=== PATIENT | male | born 1935 | race Caucasian/White ===

== ENCOUNTER 2017-09-12 20:10 | Inpatient (IN) | payer MEDICARE, OTHER ==
[~2017-09-12] VITALS: Ht 175.3 cm; Wt 88.0 kg
[2017-09-12 20:42] LABS: BASOPHILS % (AUTO) 0.4 % (0-1); EOSINOPHILS # (AUTO) 0.6 X10'3 (0-0.9); EOSINOPHILS % (AUTO) 6.1 % (0-6); HEMATOCRIT 46.8 % (42.0-52.0); LYMPHOCYTES # (AUTO) 3.3 X10'3 (1.1-4.8); LYMPHOCYTES % (AUTO) 34.4 % (21-51); MEAN CORPUSCULAR HEMOGLOBIN 31.4 PG (27.0-31.0); MEAN CORPUSCULAR HGB CONC 34.1 % (33.0-36.5); MEAN CORPUSCULAR VOLUME 91.9 FL (78-98); MEAN PLATELET VOLUME 7.7 FL (7.4-10.4); MONOCYTES # (AUTO) 0.8 X10'3 (0-0.9); MONOCYTES % (AUTO) 8.4 % (2-12); NEUTROPHILS # (AUTO) 4.9 X10'3 (1.8-7.7); NEUTROPHILS % (AUTO) 50.7 % (42-75); PLATELET COUNT 262 X10'3 (140-440); RED CELL DISTRIBUTION WIDTH 14.1 % (11.5-14.5); WHITE BLOOD COUNT 9.7 X10'3 (4.5-11.0)
[2017-09-12 20:53] LABS: PARTIAL THROMBOPLASTIN TIME 30 SECONDS (22-32); PROTHROMBIN TIME 10.6 SECONDS (9.0-12.0)
[2017-09-12] MEDS ORDERED: aspirin 325mg tablet PO ONE (20:55)
[2017-09-12 20:57] LABS: ALANINE AMINOTRANSFERASE 21 U/L (12-78); ALBUMIN 3.8 G/DL (3.4-5.0); ALBUMIN/GLOBULIN RATIO 0.9 (1.1-1.5); ALKALINE PHOSPHATASE 85 IU/L (46-116); ANION GAP 14 (8-16); ASPARTATE AMINO TRANSFERASE 16 U/L (10-37); BILIRUBIN,TOTAL 0.3 MG/DL (0.1-1.0); BLOOD UREA NITROGEN 16 MG/DL (7-18); BUN/CREATININE RATIO 9.7 (5.4-32.0); CALCIUM 9.3 MG/DL (8.5-10.1); CHLORIDE 103 MMOL/L (99-107); CREATININE 1.65 MG/DL (0.60-1.10); GLUCOSE 151 MG/DL (70-104); POTASSIUM 3.9 MMOL/L (3.5-5.1); SODIUM 139 MMOL/L (135-145); TOTAL CARBON DIOXIDE 22.5 MMOL/L (24-32); TOTAL PROTEIN 8.1 G/DL (6.4-8.2); eGFR 40 ML/MIN
[2017-09-12] MEDS ORDERED: AMLO-94 PO (21:11)
[2017-09-12] MEDS ORDERED: ASPI81TA52 PO (21:12)
[2017-09-12] MEDS ORDERED: magnesium hydroxide 30ml (MOM) UD suspension PO PRN (23:20)
[2017-09-12] MEDS ORDERED: ondansetron/PF 4mg/2ml inj IV PRN (23:20)
[2017-09-12] MEDS ORDERED: potassium Cl 20 mEq SR tablet PO PRN ×2 (23:20)
[2017-09-12] MEDS ORDERED: acetaminophen 325mg tablet PO PRN (23:20)
[2017-09-12] MEDS ORDERED: potassium Cl 40MEQ/NS 500ml 500 ML IV PRN ×2 (23:20)
[2017-09-12] MEDS ORDERED: mag hydrox/Alum hydrox/simeth 30ml oral suspension PO PRN (23:20)
[2017-09-12] MEDS: normal saline 1000ml 1,000 ML IV SCH (23:40)
[2017-09-12 23:51] LABS: HEMOGLOBIN A1C 6.3 % (4.5-6.2)
[2017-09-13 06:13] LABS: BASOPHILS % (AUTO) 0.5 % (0-1); EOSINOPHILS # (AUTO) 0.5 X10'3 (0-0.9); EOSINOPHILS % (AUTO) 5.8 % (0-6); HEMATOCRIT 44.6 % (42.0-52.0); HEMOGLOBIN 15.3 g/dl (14.0-17.9); LYMPHOCYTES # (AUTO) 2.5 X10'3 (1.1-4.8); LYMPHOCYTES % (AUTO) 28.4 % (21-51); MEAN CORPUSCULAR HEMOGLOBIN 31.5 PG (27.0-31.0); MEAN CORPUSCULAR HGB CONC 34.2 % (33.0-36.5); MEAN CORPUSCULAR VOLUME 92.1 FL (78-98); MEAN PLATELET VOLUME 7.6 FL (7.4-10.4); MONOCYTES # (AUTO) 0.7 X10'3 (0-0.9); MONOCYTES % (AUTO) 8.5 % (2-12); NEUTROPHILS # (AUTO) 4.9 X10'3 (1.8-7.7); NEUTROPHILS % (AUTO) 56.8 % (42-75); PLATELET COUNT 238 X10'3 (140-440); RED BLOOD COUNT 4.85 X10'6 (4.70-6.10); RED CELL DISTRIBUTION WIDTH 14.1 % (11.5-14.5); WHITE BLOOD COUNT 8.7 X10'3 (4.5-11.0)
[2017-09-13 06:41] LABS: ALBUMIN 3.5 G/DL (3.4-5.0); ANION GAP 13 (8-16); BLOOD UREA NITROGEN 16 MG/DL (7-18); CHLORIDE 106 MMOL/L (99-107); CHOL/HDL RATIO 4.4 (0.00-4.99); CHOLESTEROL 191 MG/DL (0-200); CREATININE 1.45 MG/DL (0.60-1.10); GLUCOSE 116 MG/DL (70-104); HDL CHOLESTEROL 43 MG/DL (35-60); LDL CHOLESTEROL 120 MG/DL (50-100); SODIUM 142 MMOL/L (135-145); TOTAL CARBON DIOXIDE 23.2 MMOL/L (24-32); TRIGLYCERIDES 168 MG/DL (20-135); eGFR 46 ML/MIN
[2017-09-13] MEDS: K and/or MAG REPLACEMENT MC SCH (07:51)
[2017-09-13] MEDS ORDERED: lisinopril 20mg tablet PO SCH (08:00)
[2017-09-13] MEDS ORDERED: atorvastatin 20mg tablet PO SCH (08:00)
[2017-09-13] MEDS ORDERED: amLODIPine 5mg tablet PO SCH (08:00)
[2017-09-13] MEDS ORDERED: aspirin 81mg tablet.DR PO SCH (08:00)
[2017-09-13] MEDS: tamsulosin 0.4mg capsule PO SCH ×2 (08:18→20:55)
[2017-09-13] MEDS: aspirin 81mg tab.chew PO SCH (08:19)
[2017-09-13] MEDS: clopidogrel 75mg tablet PO SCH (08:20)
[2017-09-13] MEDS: normal saline 1000ml 1,000 ML IV SCH (13:37)
[2017-09-13 15:17] VITALS: BP 139/87
[2017-09-13 19:23] VITALS: BP 128/77
[2017-09-13 22:00] VITALS: BP 104/66
[2017-09-14 02:19] VITALS: BP 118/76
[2017-09-14] MEDS: normal saline 1000ml 1,000 ML IV SCH ×2 (03:17→14:07)
[2017-09-14 05:00] VITALS: BP 124/76
[2017-09-14 06:38] LABS: BASOPHILS # (AUTO) 0.1 X10'3 (0-0.2); BASOPHILS % (AUTO) 0.8 % (0-1); EOSINOPHILS # (AUTO) 0.5 X10'3 (0-0.9); EOSINOPHILS % (AUTO) 7.4 % (0-6); HEMATOCRIT 43.4 % (42.0-52.0); HEMOGLOBIN 14.8 g/dl (14.0-17.9); LYMPHOCYTES # (AUTO) 1.9 X10'3 (1.1-4.8); LYMPHOCYTES % (AUTO) 26.7 % (21-51); MEAN CORPUSCULAR HEMOGLOBIN 31.5 PG (27.0-31.0); MEAN CORPUSCULAR HGB CONC 34.1 % (33.0-36.5); MEAN CORPUSCULAR VOLUME 92.5 FL (78-98); MEAN PLATELET VOLUME 7.8 FL (7.4-10.4); MONOCYTES # (AUTO) 0.6 X10'3 (0-0.9); MONOCYTES % (AUTO) 8.6 % (2-12); NEUTROPHILS # (AUTO) 4.1 X10'3 (1.8-7.7); NEUTROPHILS % (AUTO) 56.5 % (42-75); PLATELET COUNT 221 X10'3 (140-440); RED CELL DISTRIBUTION WIDTH 14.2 % (11.5-14.5); WHITE BLOOD COUNT 7.3 X10'3 (4.5-11.0)
[2017-09-14 06:55] LABS: ALBUMIN 3.1 G/DL (3.4-5.0); ANION GAP 10 (8-16); BLOOD UREA NITROGEN 15 MG/DL (7-18); BUN/CREATININE RATIO 10.6 (5.4-32.0); CALCIUM 8.7 MG/DL (8.5-10.1); CHLORIDE 109 MMOL/L (99-107); CREATININE 1.42 MG/DL (0.60-1.10); GLUCOSE 104 MG/DL (70-104); POTASSIUM 4.4 MMOL/L (3.5-5.1); SODIUM 142 MMOL/L (135-145); TOTAL CARBON DIOXIDE 23.3 MMOL/L (24-32); eGFR 47 ML/MIN
[2017-09-14] MEDS: K and/or MAG REPLACEMENT MC SCH (08:00)
[2017-09-14 09:00] VITALS: BP 116/70
[2017-09-14] MEDS: clopidogrel 75mg tablet PO SCH (10:33)
[2017-09-14] MEDS: atorvastatin 20mg tablet PO SCH (10:34)
[2017-09-14] MEDS: aspirin 81mg tab.chew PO SCH (10:34)
[2017-09-14 18:00] VITALS: BP 133/80
[2017-09-14] MEDS: tamsulosin 0.4mg capsule PO SCH (20:49)
[2017-09-14 22:00] VITALS: BP 131/73
[2017-09-15 02:00] VITALS: BP 142/91
[2017-09-15 05:00] VITALS: BP 152/86
[2017-09-15 06:00] LABS: BASOPHILS # (AUTO) 0.1 X10'3 (0-0.2); BASOPHILS % (AUTO) 0.7 % (0-1); EOSINOPHILS # (AUTO) 0.7 X10'3 (0-0.9); EOSINOPHILS % (AUTO) 7.6 % (0-6); HEMOGLOBIN 15.1 g/dl (14.0-17.9); LYMPHOCYTES # (AUTO) 2.5 X10'3 (1.1-4.8); LYMPHOCYTES % (AUTO) 27.2 % (21-51); MEAN CORPUSCULAR HEMOGLOBIN 31.8 PG (27.0-31.0); MEAN CORPUSCULAR HGB CONC 34.2 % (33.0-36.5); MEAN CORPUSCULAR VOLUME 92.8 FL (78-98); MEAN PLATELET VOLUME 7.9 FL (7.4-10.4); MONOCYTES # (AUTO) 0.7 X10'3 (0-0.9); MONOCYTES % (AUTO) 7.4 % (2-12); NEUTROPHILS # (AUTO) 5.3 X10'3 (1.8-7.7); NEUTROPHILS % (AUTO) 57.1 % (42-75); PLATELET COUNT 221 X10'3 (140-440); RED BLOOD COUNT 4.74 X10'6 (4.70-6.10); RED CELL DISTRIBUTION WIDTH 14.2 % (11.5-14.5); WHITE BLOOD COUNT 9.3 X10'3 (4.5-11.0)
[2017-09-15 06:02] LABS: ALBUMIN 3.3 G/DL (3.4-5.0); ANION GAP 11 (8-16); BLOOD UREA NITROGEN 15 MG/DL (7-18); BUN/CREATININE RATIO 10.6 (5.4-32.0); CALCIUM 8.6 MG/DL (8.5-10.1); CHLORIDE 108 MMOL/L (99-107); CREATININE 1.42 MG/DL (0.60-1.10); GLUCOSE 105 MG/DL (70-104); POTASSIUM 3.9 MMOL/L (3.5-5.1); SODIUM 143 MMOL/L (135-145); TOTAL CARBON DIOXIDE 24.3 MMOL/L (24-32); eGFR 47 ML/MIN
[2017-09-15] MEDS: K and/or MAG REPLACEMENT MC SCH (08:47)
[2017-09-15] MEDS: atorvastatin 20mg tablet PO SCH (09:00)
[2017-09-15] MEDS: aspirin 81mg tab.chew PO SCH (09:01)
[2017-09-15] MEDS: clopidogrel 75mg tablet PO SCH (09:01)
[2017-09-15 10:00] VITALS: BP 140/92
[2017-09-15 18:00] VITALS: BP 145/65
[2017-09-15] MEDS: tamsulosin 0.4mg capsule PO SCH (20:54)
[2017-09-15 22:00] VITALS: BP 143/83
[2017-09-15] MEDS: normal saline 1000ml 1,000 ML IV SCH (22:49)
[2017-09-16 06:00] VITALS: BP 110/80
[2017-09-16 06:06] LABS: BASOPHILS % (AUTO) 0.5 % (0-1); EOSINOPHILS # (AUTO) 0.6 X10'3 (0-0.9); EOSINOPHILS % (AUTO) 7.6 % (0-6); HEMATOCRIT 41.3 % (42.0-52.0); HEMOGLOBIN 14.2 g/dl (14.0-17.9); LYMPHOCYTES # (AUTO) 1.8 X10'3 (1.1-4.8); LYMPHOCYTES % (AUTO) 22.3 % (21-51); MEAN CORPUSCULAR HEMOGLOBIN 31.6 PG (27.0-31.0); MEAN CORPUSCULAR HGB CONC 34.4 % (33.0-36.5); MEAN CORPUSCULAR VOLUME 91.9 FL (78-98); MEAN PLATELET VOLUME 7.7 FL (7.4-10.4); MONOCYTES # (AUTO) 0.7 X10'3 (0-0.9); MONOCYTES % (AUTO) 8.6 % (2-12); PLATELET COUNT 204 X10'3 (140-440); RED CELL DISTRIBUTION WIDTH 14.3 % (11.5-14.5); WHITE BLOOD COUNT 8.2 X10'3 (4.5-11.0)
[2017-09-16 06:19] LABS: ALBUMIN 3.1 G/DL (3.4-5.0); ANION GAP 10 (8-16); BLOOD UREA NITROGEN 13 MG/DL (7-18); BUN/CREATININE RATIO 8.7 (5.4-32.0); CALCIUM 8.7 MG/DL (8.5-10.1); CHLORIDE 109 MMOL/L (99-107); CREATININE 1.49 MG/DL (0.60-1.10); GLUCOSE 112 MG/DL (70-104); SODIUM 142 MMOL/L (135-145); TOTAL CARBON DIOXIDE 23.3 MMOL/L (24-32); eGFR 45 ML/MIN
[2017-09-16 07:50] VITALS: BP 136/79
[2017-09-16] MEDS: K and/or MAG REPLACEMENT MC SCH (08:00)
[2017-09-16] MEDS: atorvastatin 20mg tablet PO SCH (08:19)
[2017-09-16] MEDS: aspirin 81mg tab.chew PO SCH (08:20)
[2017-09-16] MEDS: clopidogrel 75mg tablet PO SCH (08:20)
[2017-09-16 11:26] VITALS: BP 152/87
== END 2017-09-16 16:22 | DRG 65 ==
LOC: ER 20:11 → ED HOLD 23:19 → ORTHO 4S 09-13 14:42
PROVIDERS: ADMIT Family Medicine; ATTEND Family Medicine
DX: I63.9 Cerebral infarction, unspecified (principal); G81.91 Hemiplegia, unspecified affecting right dominant side; N18.3 Chronic kidney disease, stage 3 (moderate); E78.00 Pure hypercholesterolemia, unspecified; E78.5 Hyperlipidemia, unspecified; I12.9 Hypertensive chronic kidney disease with stage 1 through stage 4 chronic kidney disease, or unspecified chronic kidney disease; R73.03 Prediabetes; R47.1 Dysarthria and anarthria; Z66 Do not resuscitate; Z88.5 Allergy status to narcotic agent; Z79.899 Other long term (current) drug therapy; Z79.82 Long term (current) use of aspirin; Z86.73 Personal history of transient ischemic attack (TIA), and cerebral infarction without residual deficits; Z82.49 Family history of ischemic heart disease and other diseases of the circulatory system
CPT/HCPCS: 36415; 70450; 70544; 70551; 71045; 80048; 80053; 80061; 82948; 83036; 85025; 85610; 85730; 87070; 92616; 93005; 93306; 93880; 97110; 97116; 97161; 97530; 99285; J7030

== ENCOUNTER 2017-09-22 17:05 | Inpatient (IN) | payer MEDICARE, BC ==
[~2017-09-22] VITALS: Ht 172.7 cm; Wt 81.0 kg
[~2017-09-22 17:05] MED LIST: AMLO-94 PO; ASPI81TA52 PO
[2017-09-22 18:13] LABS: PARTIAL THROMBOPLASTIN TIME 30 SECONDS (22-32); PROTHROMBIN TIME 10.5 SECONDS (9.0-12.0)
[2017-09-22 18:15] LABS: BASOPHILS % (AUTO) 0.5 % (0-1); EOSINOPHILS # (AUTO) 0.5 X10'3 (0-0.9); HEMATOCRIT 43.6 % (42.0-52.0); HEMOGLOBIN 14.9 g/dl (14.0-17.9); LYMPHOCYTES # (AUTO) 1.9 X10'3 (1.1-4.8); LYMPHOCYTES % (AUTO) 24.5 % (21-51); MEAN CORPUSCULAR HEMOGLOBIN 31.6 PG (27.0-31.0); MEAN CORPUSCULAR HGB CONC 34.1 % (33.0-36.5); MEAN CORPUSCULAR VOLUME 92.8 FL (78-98); MEAN PLATELET VOLUME 7.9 FL (7.4-10.4); MONOCYTES # (AUTO) 0.6 X10'3 (0-0.9); MONOCYTES % (AUTO) 7.9 % (2-12); NEUTROPHILS # (AUTO) 4.6 X10'3 (1.8-7.7); NEUTROPHILS % (AUTO) 60.1 % (42-75); PLATELET COUNT 256 X10'3 (140-440); RED CELL DISTRIBUTION WIDTH 13.9 % (11.5-14.5); WHITE BLOOD COUNT 7.7 X10'3 (4.5-11.0)
[2017-09-22 18:20] LABS: ALANINE AMINOTRANSFERASE 24 U/L (12-78); ALBUMIN 3.5 G/DL (3.4-5.0); ALBUMIN/GLOBULIN RATIO 0.9 (1.1-1.5); ALKALINE PHOSPHATASE 89 IU/L (46-116); ANION GAP 10 (8-16); ASPARTATE AMINO TRANSFERASE 16 U/L (10-37); BILIRUBIN,TOTAL 0.3 MG/DL (0.1-1.0); BLOOD UREA NITROGEN 19 MG/DL (7-18); BUN/CREATININE RATIO 12.7 (5.4-32.0); CHLORIDE 103 MMOL/L (99-107); GLUCOSE 160 MG/DL (70-104); POTASSIUM 3.8 MMOL/L (3.5-5.1); SODIUM 141 MMOL/L (135-145); TOTAL CARBON DIOXIDE 27.7 MMOL/L (24-32); TOTAL PROTEIN 7.4 G/DL (6.4-8.2); eGFR 45 ML/MIN
[2017-09-22] MEDS ORDERED: pantoprazole 40 MG vial IV ONE (21:05)
[2017-09-22] MEDS ORDERED: pantoprazole 40MG/NS 100ML BAG 100 ML IV ONE (21:05)
[2017-09-22] MEDS ORDERED: mag hydrox/Alum hydrox/simeth 30ml oral suspension PO PRN (22:10)
[2017-09-22] MEDS ORDERED: magnesium hydroxide 30ml (MOM) UD suspension PO PRN (22:10)
[2017-09-22] MEDS ORDERED: ondansetron/PF 4mg/2ml inj IV PRN (22:10)
[2017-09-22] MEDS ORDERED: acetaminophen 325mg tablet PO PRN ×2 (22:10)
[2017-09-22] MEDS: normal saline 1000ml 1,000 ML IV SCH (22:25)
[2017-09-23] VITALS (11 sets, daily range): BP systolic 108–151; BP diastolic 56–89
[2017-09-23] MEDS: atorvastatin 20mg tablet PO SCH ×2 (00:37→08:52)
[2017-09-23 05:20] LABS: BASOPHILS # (AUTO) 0.1 X10'3 (0-0.2); EOSINOPHILS # (AUTO) 0.7 X10'3 (0-0.9); EOSINOPHILS % (AUTO) 7.8 % (0-6); HEMATOCRIT 38.9 % (42.0-52.0); HEMOGLOBIN 13.6 g/dl (14.0-17.9); LYMPHOCYTES # (AUTO) 1.9 X10'3 (1.1-4.8); LYMPHOCYTES % (AUTO) 22.9 % (21-51); MEAN CORPUSCULAR HEMOGLOBIN 31.8 PG (27.0-31.0); MEAN CORPUSCULAR HGB CONC 34.8 % (33.0-36.5); MEAN CORPUSCULAR VOLUME 91.4 FL (78-98); MEAN PLATELET VOLUME 7.7 FL (7.4-10.4); MONOCYTES # (AUTO) 0.8 X10'3 (0-0.9); MONOCYTES % (AUTO) 9.9 % (2-12); NEUTROPHILS % (AUTO) 58.4 % (42-75); PLATELET COUNT 224 X10'3 (140-440); RED BLOOD COUNT 4.26 X10'6 (4.70-6.10); RED CELL DISTRIBUTION WIDTH 13.6 % (11.5-14.5); WHITE BLOOD COUNT 8.5 X10'3 (4.5-11.0)
[2017-09-23 05:47] LABS: ALBUMIN 3.1 G/DL (3.4-5.0); ANION GAP 8 (8-16); BLOOD UREA NITROGEN 17 MG/DL (7-18); BUN/CREATININE RATIO 12.1 (5.4-32.0); CALCIUM 8.5 MG/DL (8.5-10.1); CHLORIDE 107 MMOL/L (99-107); GLUCOSE 108 MG/DL (70-104); POTASSIUM 3.9 MMOL/L (3.5-5.1); SODIUM 141 MMOL/L (135-145); TOTAL CARBON DIOXIDE 25.8 MMOL/L (24-32); eGFR 48 ML/MIN
[2017-09-23] MEDS: lisinopril 20mg tablet PO SCH (08:52)
[2017-09-23] MEDS: amLODIPine 5mg tablet PO SCH (08:52)
[2017-09-23] MEDS: normal saline 1000ml 1,000 ML IV SCH (13:31)
[2017-09-23] MEDS ORDERED: LIDOcaine Viscous 15ml cup ONE (16:22)
[2017-09-23] MEDS ORDERED: fentaNYL/PF 50MCG/1 ML 2ML syringe ONE (16:22)
[2017-09-23] MEDS ORDERED: MIDAZolam 5mg/5ml vial ONE (16:22)
[2017-09-23] MEDS ORDERED: normal saline 1000ml 1,000 ML IV SCH (16:30)
[2017-09-23] MEDS ORDERED: fentaNYL/PF 50MCG/1 ML 2ML syringe IV PRN (16:30)
[2017-09-23] MEDS ORDERED: LIDOcaine Viscous 15ml cup PO ONE (16:30)
[2017-09-23] MEDS ORDERED: simethicone 40mg/0.6ml oral drops 30ml MC ONE (16:30)
[2017-09-23] MEDS ORDERED: MIDAZolam 5mg/5ml vial IV PRN (16:30)
[2017-09-23] MEDS ORDERED: tamsulosin 0.4mg capsule PO SCH (21:00)
[2017-09-24] VITALS: BP 128/72
[2017-09-24 05:23] LABS: BASOPHILS # (AUTO) 0.1 X10'3 (0-0.2); BASOPHILS % (AUTO) 0.7 % (0-1); EOSINOPHILS # (AUTO) 0.6 X10'3 (0-0.9); EOSINOPHILS % (AUTO) 6.4 % (0-6); HEMATOCRIT 41.2 % (42.0-52.0); LYMPHOCYTES # (AUTO) 2.1 X10'3 (1.1-4.8); MEAN CORPUSCULAR HEMOGLOBIN 31.2 PG (27.0-31.0); MEAN CORPUSCULAR VOLUME 91.9 FL (78-98); MEAN PLATELET VOLUME 7.9 FL (7.4-10.4); MONOCYTES # (AUTO) 0.7 X10'3 (0-0.9); MONOCYTES % (AUTO) 8.2 % (2-12); NEUTROPHILS # (AUTO) 5.6 X10'3 (1.8-7.7); NEUTROPHILS % (AUTO) 61.7 % (42-75); PLATELET COUNT 227 X10'3 (140-440); RED BLOOD COUNT 4.48 X10'6 (4.70-6.10); RED CELL DISTRIBUTION WIDTH 13.8 % (11.5-14.5); WHITE BLOOD COUNT 9.1 X10'3 (4.5-11.0)
[2017-09-24] MEDS: normal saline 1000ml 1,000 ML IV SCH (05:43)
[2017-09-24 05:53] LABS: ALBUMIN 3.1 G/DL (3.4-5.0); ANION GAP 10 (8-16); BLOOD UREA NITROGEN 14 MG/DL (7-18); BUN/CREATININE RATIO 9.9 (5.4-32.0); CALCIUM 8.6 MG/DL (8.5-10.1); CHLORIDE 106 MMOL/L (99-107); CREATININE 1.41 MG/DL (0.60-1.10); GLUCOSE 101 MG/DL (70-104); POTASSIUM 3.7 MMOL/L (3.5-5.1); SODIUM 141 MMOL/L (135-145); TOTAL CARBON DIOXIDE 24.7 MMOL/L (24-32); eGFR 48 ML/MIN
[2017-09-24 08:43] VITALS: BP 123/66
[2017-09-24] MEDS: amLODIPine 5mg tablet PO SCH (09:22)
[2017-09-24] MEDS: lisinopril 20mg tablet PO SCH (09:22)
[2017-09-24] MEDS: atorvastatin 20mg tablet PO SCH (09:23)
[2017-09-24] MEDS ORDERED: CLOP75TA15 PO (10:34)
[2017-09-24] MEDS ORDERED: PANT40TA4 PO (10:34)
[2017-09-24 12:46] VITALS: BP 127/75
[2017-09-24] MEDS ORDERED: BENA20TA2 PO (14:37)
[2017-09-24] MEDS ORDERED: AMLO5TAB16 PO (14:37)
[2017-09-24] MEDS ORDERED: HCTZ25T PO (14:37)
[2017-09-24] MEDS ORDERED: LISI-600 PO (14:42)
[2017-09-24] MEDS ORDERED: ATOR20TA66 PO (15:29)
== END 2017-09-24 15:14 | disposition home or self-care (01) | DRG 379 ==
LOC: ER 17:05 → ED HOLD 22:10 → EDBEDREQ 23:35 → SUR 3N 09-23 00:05
PROVIDERS: ADMIT Internal Medicine; ATTEND Internal Medicine
PROC: 0DB68ZX Excision of Stomach, Via Natural or Artificial Opening Endoscopic, Diagnostic (ICD-10-PCS; principal; 2017-09-23)
DX: K29.71 Gastritis, unspecified, with bleeding (principal); I35.0 Nonrheumatic aortic (valve) stenosis; N18.3 Chronic kidney disease, stage 3 (moderate); E78.00 Pure hypercholesterolemia, unspecified; K26.4 Chronic or unspecified duodenal ulcer with hemorrhage; E78.5 Hyperlipidemia, unspecified; I12.9 Hypertensive chronic kidney disease with stage 1 through stage 4 chronic kidney disease, or unspecified chronic kidney disease; N40.0 Benign prostatic hyperplasia without lower urinary tract symptoms; T39.015A Adverse effect of aspirin, initial encounter; T45.525A Adverse effect of antithrombotic drugs, initial encounter; Z66 Do not resuscitate; Z88.5 Allergy status to narcotic agent; Z79.02 Long term (current) use of antithrombotics/antiplatelets; Z86.73 Personal history of transient ischemic attack (TIA), and cerebral infarction without residual deficits; Y92.89 Other specified places as the place of occurrence of the external cause
CPT/HCPCS: 36415; 43239; 80048; 80053; 85025; 85610; 85730; 87070; 88305; 96365; 99285; A4620; C9113; G0500; J2250; J3010; J7030

== ENCOUNTER 2020-05-28 10:15 | Outpatient (CLI) | payer MEDICARE, BC ==
[~2020-05-28 10:15] MED LIST changes: -AMLO-94 PO; +APIX5TAB3 PO; -ASPI81TA52 PO; +ATOR-2 PO; +CLOP75TA35 PO; +FLO0.4C PO; +FURO-150 PO; +METO-395 PO; +PANT-47 PO
== END 2020-05-28 23:59 | disposition home or self-care (01) ==
LOC: RT 10:15
PROVIDERS: ATTEND Internal Medicine Cardiovascular Disease
DX: I35.0 Nonrheumatic aortic (valve) stenosis (principal); D64.9 Anemia, unspecified; R06.02 Shortness of breath; I65.29 Occlusion and stenosis of unspecified carotid artery
CPT/HCPCS: 94010; 94727; 94729

== ENCOUNTER → 2020-05-30 | Outpatient (CLI) | payer MEDICARE, BC ==
[~2020-05-30] MED LIST changes: +AMLO5TAB4 PO; +ASPI-1265 PO; +ATOR80TA PO; +BENA10TA75 PO; +CLOP75TA34 PO; -CLOP75TA35 PO; +METO-539 PO; +iohexol 350 MG/ML 50ML vial IV ONE; +iohexol 350MG/ML 100ml bottle IV ONE; +metoprolol tartrate 1mg/ml inj IV ONE
--- NOTE | 2020-05-30 12:00 | NUR ---
PATIENT IN CT FOR CARDIAC CTA 18GAUGE RIGHT AC, STRIP PRINTED SHOWS NO AV BLOCKS VS PRIOR TO CT HR 105, B/P 132/76, RR-18 O2-98 RA, PATIENT PLACED ON MONITOR 2.5MG OF METOPROLOL GIVEN VSS HR DECREASED TO 80'S-90'S AFTER 10MIN'S WITH BP ABOVE 100SBP. SECOND DOES OF METOPROLOL 2.5MG GIVEN HR DECREASED TO 70'S RECYCLING ASSISTANT PREFORMED SCAN AND PATIENT WAS MONITORED FOR 10MIN S/P LAST INJECTION WITH VSS BACK TO BASELINE IV REMOVED AND PATIENT TAKEN TO ULTRASOUND FOR VASCULAR US PROCEDURE.
== END | disposition home or self-care (01) ==
LOC: 64 CT 10:34
PROVIDERS: ATTEND Internal Medicine Cardiovascular Disease
DX: I65.23 Occlusion and stenosis of bilateral carotid arteries (principal); I35.0 Nonrheumatic aortic (valve) stenosis; R06.02 Shortness of breath
CPT/HCPCS: 71275; 74174; 93880; Q9967; J3490

== ENCOUNTER 2020-06-20 06:09 | Day surgery (SDC) | payer MEDICARE, BC ==
[2020-06-19 12:25] LABS: BASOPHILS # (AUTO) 0.1 X10'3 (0-0.2); BASOPHILS % (AUTO) 0.7 % (0-1); EOSINOPHILS # (AUTO) 0.5 X10'3 (0-0.9); EOSINOPHILS % (AUTO) 5.9 % (0-6); HEMATOCRIT 35.5 % (42.0-52.0); HEMOGLOBIN 11.4 g/dl (14.0-17.9); LYMPHOCYTES # (AUTO) 1.4 X10'3 (1.1-4.8); LYMPHOCYTES % (AUTO) 16.6 % (21-51); MEAN CORPUSCULAR HGB CONC 32.2 g/dL (33.0-36.5); MEAN CORPUSCULAR VOLUME 77.7 FL (78-98); MEAN PLATELET VOLUME 7.4 FL (7.4-10.4); MONOCYTES # (AUTO) 0.7 X10'3 (0-0.9); MONOCYTES % (AUTO) 8.6 % (2-12); NEUTROPHILS # (AUTO) 5.8 X10'3 (1.8-7.7); NEUTROPHILS % (AUTO) 68.2 % (42-75); PLATELET COUNT 304 X10'3 (140-440); RED BLOOD COUNT 4.57 X10'6 (4.70-6.10); RED CELL DISTRIBUTION WIDTH 17.4 % (11.5-14.5); WHITE BLOOD COUNT 8.5 X10'3 (4.5-11.0)
[2020-06-19 12:36] LABS: ALBUMIN 3.6 G/DL (3.4-5.0); ANION GAP 10 (8-16); BLOOD UREA NITROGEN 22 MG/DL (7-18); BUN/CREATININE RATIO 13.8 (5.4-32.0); CALCIUM 9.1 MG/DL (8.5-10.1); CHLORIDE 105 MMOL/L (99-107); GLUCOSE 142 MG/DL (70-104); PARTIAL THROMBOPLASTIN TIME 27 SECONDS (22-32); POTASSIUM 4.1 MMOL/L (3.5-5.1); SODIUM 142 MMOL/L (135-145); TOTAL CARBON DIOXIDE 27.2 MMOL/L (24-32); eGFR 41 ML/MIN
[~2020-06-20] VITALS: Ht 167.6 cm; Wt 76.7 kg
[2020-06-20] VITALS (16 sets, daily range): BP systolic 97–134; BP diastolic 57–92
[~2020-06-20 06:09] MED LIST changes: -AMLO5TAB4 PO; -ASPI-1265 PO; -ATOR80TA PO; -BENA10TA75 PO; -METO-539 PO; -iohexol 350 MG/ML 50ML vial IV ONE; -iohexol 350MG/ML 100ml bottle IV ONE; -metoprolol tartrate 1mg/ml inj IV ONE
[2020-06-20] MEDS ORDERED: acetylcysteine 200 MG/ml 4ml vial PO SCH (06:30)
[2020-06-20] MEDS ORDERED: sodium bicarbonate (8.4%) inj. 150 ML in dextrose 5%-water 1,000 ML IV ONE ×2 (06:30→10:15)
[2020-06-20] MEDS ORDERED: diphenhydrAMINE 25mg capsule PO PRN (06:30)
[2020-06-20] MEDS ORDERED: LORazepam 0.5 MG tablet PO PRN (06:30)
[2020-06-20] MEDS ORDERED: LIDOcaine/PRILOcaine 5gm cream TP ONE (06:35)
--- NOTE | 2020-06-20 07:30 | NUR ---
pt voided 50ml, clear yellow
[2020-06-20] MEDS ORDERED: midazolam 2 mg/2 ml injection ONE (07:39)
[2020-06-20] MEDS ORDERED: heparin 25,000 UNIT/250ml bag 250 ML IV ONE (07:40)
[2020-06-20] MEDS ORDERED: heparin 1,000unit/ml 10ml vial 10 ML ONE (07:40)
[2020-06-20] MEDS ORDERED: nitroGLYCERIN-Tridil 50MG/D5W 250 ML IV ONE (07:40)
[2020-06-20] MEDS ORDERED: LIDOcaine 1% (10mg/ml)w/preservative injection 20ml MDV ONE (07:40)
[2020-06-20] MEDS ORDERED: iohexol 350 MG/1 ML 200ml bottle ONE (07:40)
[2020-06-20] MEDS ORDERED: fentaNYL/PF 50MCG/1 ML 2ML syringe ONE (07:40)
--- NOTE | 2020-06-20 07:50 | NUR ---
pt voided 50ml clear yellow.
[2020-06-20] MEDS ORDERED: FURO-150 PO (07:52)
[2020-06-20] MEDS ORDERED: APIX5TAB3 PO (07:52)
[2020-06-20] MEDS ORDERED: METO-539 PO (07:52)
[2020-06-20] MEDS ORDERED: ASPI-1265 PO (07:52)
[2020-06-20] MEDS ORDERED: ATOR80TA PO (07:52)
[2020-06-20] MEDS ORDERED: FLU VACC QS2020-21(6MOS UP)/PF 60 MCG/0.5 ML SYRINGE IMVAC ONE (08:00)
[2020-06-20] MEDS ORDERED: clopidogrel 300mg tablet ONE (09:24)
[2020-06-20] MEDS ORDERED: clopidogrel 300mg tablet PO ONE (10:15)
[2020-06-20] MEDS ORDERED: acetylcysteine 200 MG/ml 4ml vial PO ONE (10:20)
--- NOTE | 2020-06-20 10:30 | NUR ---
pt voided 50 ml clear yellow
--- NOTE | 2020-06-20 10:50 | NUR ---
pt voided 50ml clear yellow
--- NOTE | 2020-06-20 11:10 | NUR ---
pt voided 50ml clear yellow
[2020-06-20] MEDS ORDERED: AMLO5TAB4 PO (14:00)
[2020-06-20] MEDS ORDERED: BENA10TA75 PO (14:00)
[2020-06-20 14:23] LABS: CLARITY,URINE CLEAR (Clear); COLOR,URINE YELLOW (Yellow); GLUCOSE, URINE NEGATIVE (Neg); KETONES,URINE NEGATIVE (Neg); LEUKOCYTE ESTERASE ,URINE NEGATIVE (Neg); NITRITES, URINE NEGATIVE (Neg); OCCULT BLOOD,URINE NEGATIVE (Neg); PH,URINE 6.5 (4.8-8.0); PROTEIN,URINE NEGATIVE (Neg); UA COLLECTION TYPE CLN CATCH MIDSTREAM; UROBILINOGEN,URINE 0.2 E.U/dL (0.2-1.0)
[2020-06-21] MEDS ORDERED: clopidogrel 75mg tablet PO SCH (08:00)
== END 2020-06-20 17:00 | disposition home or self-care (01) ==
LOC: SSTAY O 06:09
PROVIDERS: ATTEND Internal Medicine Cardiovascular Disease
DX: I25.10 Atherosclerotic heart disease of native coronary artery without angina pectoris (principal); I25.2 Old myocardial infarction; I35.0 Nonrheumatic aortic (valve) stenosis; I10 Essential (primary) hypertension; E78.5 Hyperlipidemia, unspecified; I08.1 Rheumatic disorders of both mitral and tricuspid valves; N40.0 Benign prostatic hyperplasia without lower urinary tract symptoms; I48.0 Paroxysmal atrial fibrillation; Z86.73 Personal history of transient ischemic attack (TIA), and cerebral infarction without residual deficits; Z88.5 Allergy status to narcotic agent; Z20.822 Contact with and (suspected) exposure to COVID-19; Z79.01 Long term (current) use of anticoagulants; Z82.49 Family history of ischemic heart disease and other diseases of the circulatory system; Z80.9 Family history of malignant neoplasm, unspecified
CPT/HCPCS: 36415; 71045; 76937; 80048; 81003; 85025; 85347; 85610; 85730; 87081; 87635; 93005; 99152; 99153; C1725; C1751; C1769; C1874; C1892; C1894; C9600; J1644; J2001; J2250; J3010; J7040; Q0163; Q9967; A4620; A6258; J3490

== ENCOUNTER 2020-06-28 05:32 | Inpatient (IN) | payer MEDICARE, BC ==
[~2020-06-28] VITALS: Ht 167.6 cm; Wt 76.9 kg
[2020-06-28] VITALS (20 sets, daily range): BP systolic 0–160; BP diastolic 58–89
[~2020-06-28 05:32] MED LIST changes: +AMLO5TAB4 PO; +ASPI-1265 PO; -ATOR-2 PO; +ATOR80TA PO; +BENA10TA75 PO; -FURO-150 PO; -METO-395 PO; +aspirin 325mg tablet PO ONE; +ceFAZolin 2gm in dextrose, iso 50 ML IV ONE; +famotidine 20mg tablet PO ONE; +nitroPRUSSIDE in NS 100 ML IV SCH; +ondansetron/PF 4mg/2ml inj IV PRN; +phenylephrine inj 50 MG in normal saline 250ml IV soln 250 ML IV SCH; +ringers solution, lacted 1,000 ML IV SCH; +vancomycin 1,500 MG in NS 300ml IV soln IV ONE
[2020-06-28] MEDS ORDERED: iohexol 350MG/ML 100ml bottle IV ONE (06:28)
[2020-06-28] MEDS ORDERED: heparin 1,000 UNITS/NS 500ml 500 ML ONE ×3 (06:28→06:41)
[2020-06-28] MEDS ORDERED: iohexol 350 MG/ML 50ML vial IV ONE (06:28)
[2020-06-28] MEDS ORDERED: sevoflurane 250ml liquid IH ONE (06:54)
[2020-06-28] MEDS ORDERED: midazolam 2 mg/2 ml injection ONE (06:57)
[2020-06-28] MEDS ORDERED: fentaNYL/PF 50MCG/1 ML 2ML syringe ONE (06:57)
[2020-06-28] MEDS ORDERED: propofol inj 20 ML IV ONE (06:59)
[2020-06-28] MEDS ORDERED: morphine 2 MG/ML inj. syringe IV PRN (07:35)
[2020-06-28] MEDS ORDERED: proCHLORperazine 10 MG/2 ml inj IV PRN (07:35)
[2020-06-28] MEDS ORDERED: meperidine/PF 25mg/ml syringe IV PRN ×3 (07:35)
[2020-06-28] MEDS ORDERED: ringers solution, lacted 1,000 ML IV SCH (07:35)
[2020-06-28] MEDS ORDERED: morphine 4 MG/ML inj SYRINge IV PRN (07:35)
[2020-06-28] MEDS ORDERED: ondansetron/PF 4mg/2ml inj IV PRN ×2 (07:35→09:00)
[2020-06-28] MEDS ORDERED: ePHEDrine 50MG/ML INJ. ONE (08:03)
[2020-06-28] MEDS ORDERED: rocuronium 10mg/ml inj IV ONE (08:03)
[2020-06-28] MEDS ORDERED: dexamethasone sod phosphate 4mg/ml inj. ONE (08:03)
[2020-06-28] MEDS ORDERED: heparin 1,000unit/ml 10ml vial 10 ML ONE (08:04)
[2020-06-28] MEDS ORDERED: protamine sulfate 10mg/ml inj. ONE (08:06)
[2020-06-28] MEDS ORDERED: metoprolol tartrate 1mg/ml inj IV ONE (08:18)
[2020-06-28] MEDS ORDERED: glycopyrrolate 0.2mg/ml inj ONE (08:18)
[2020-06-28] MEDS ORDERED: neostigmine methylsulfate 1 MG/ML 10ml vial ONE (08:18)
--- NOTE | 2020-06-28 08:35 | NUR ---
Received from OR via BED, accompanied by Anesthesiologist DR BARFIELD-- and report given by Anesthesiolgist. PATIENT A&OX4, DENIES PAIN, V/S WNL, NEUROVASCULAR CHECKS INTACT, 18G PIV LUE, ART LINE LUE, BILAT COLLAGEN PLUGS TO FEMORAL CDI NO DRAINAGE, BRUISE TO RIGHT GROIN. MINIMAL EDEMA
--- NOTE | 2020-06-28 08:47 | NUR ---
NEUROCHECKS UNCHANGED NO S/S OF COMPLICATIONS OR CHANGE FROM PATIENT BASELINE.
[2020-06-28] MEDS ORDERED: HYDROcodone/acetaminophen 5mg/325mg tablet PO PRN (09:00)
[2020-06-28] MEDS ORDERED: LABETALOL HCL 200mg/40ml (5 MG/ML) inj. IV PRN (09:00)
[2020-06-28] MEDS ORDERED: acetaminophen 325mg tablet PO PRN (09:00)
[2020-06-28] MEDS ORDERED: normal saline 1000ml 1,000 ML IV SCH ×2 (09:00→11:25)
[2020-06-28] MEDS ORDERED: hydrALAZINE 20mg/ml inj. IV PRN (09:00)
[2020-06-28] MEDS: clopidogrel 75mg tablet PO SCH (09:14)
--- NOTE | 2020-06-28 09:35 | NUR ---
PATIENT A&OX4, DENIES PAIN, V/S WNL, NEUROVASCULAR CHECKS INTACT, 18G PIV LUE, ART LINE LUE, BILAT COLLAGEN PLUGS TO FEMORAL CDI NO DRAINAGE, BRUISE TO RIGHT GROIN. MINIMAL EDEMA, NEUROCHECKS STABLE W/ NO CHANGES IN BASELINE, PULSES BILAT UE AND LE PRESENT. PATIENT TAKEN TO 310 WITH ALL BELONGINGS AND HOOKED UP TO MONITORS IN ROOM AND REPORT GIVEN TO CHENG RN WHO HAS TAKEN OVER PATIENT CARE.
[2020-06-28] MEDS ORDERED: FURO-150 PO (11:33)
[2020-06-28] MEDS ORDERED: POTA20TA19 PO (11:33)
[2020-06-28] MEDS ORDERED: METO-395 PO (11:33)
[2020-06-28 13:21] LABS: POTASSIUM 4.5 MMOL/L (3.5-5.1)
[2020-06-28] MEDS ORDERED: furosemide 20MG tablet PO ONE (14:15)
[2020-06-28] MEDS ORDERED: potassium Cl 20 mEq SR tablet PO SCH (14:15)
[2020-06-28] MEDS: metoprolol succinate 25mg (24-HOUR) SR. Tablet PO SCH (14:30)
[2020-06-28] MEDS: ceFAZolin/D5W- 1GM premix 50 ML IV SCH (16:36)
--- NOTE | 2020-06-28 18:30 | NUR ---
Problems reprioritized. Patient report given, questions answered & plan of care reviewed with CHRISTOFER Fallon.
[2020-06-28] MEDS ORDERED: clopidogrel 75mg tablet PO SCH (20:00)
[2020-06-28] MEDS: vancomycin/NS 1 GM ADD-VANTAGE 250 ML IV SCH (20:51)
--- NOTE | 2020-06-28 21:30 | NUR ---
Art line pulled. Cannula intact, manual pressure held. No bleeding or oozing at site, dressing applied and is CDI.
[2020-06-29] MEDS: ceFAZolin/D5W- 1GM premix 50 ML IV SCH ×2 (00:25→08:26)
[2020-06-29 02:00] VITALS: BP_SYST 0; BP_SYST 93; BP_DIAS 53
[2020-06-29 06:00] VITALS: BP_SYST 0; BP_SYST 120; BP_DIAS 77
[2020-06-29 07:00] LABS: BASOPHILS # (AUTO) 0.1 X10'3 (0-0.2); BASOPHILS % (AUTO) 0.4 % (0-1); EOSINOPHILS % (AUTO) 0.1 % (0-6); HEMATOCRIT 32.9 % (42.0-52.0); HEMOGLOBIN 10.3 g/dl (14.0-17.9); LYMPHOCYTES # (AUTO) 1.3 X10'3 (1.1-4.8); LYMPHOCYTES % (AUTO) 8.3 % (21-51); MEAN CORPUSCULAR HEMOGLOBIN 24.4 PG (27.0-31.0); MEAN CORPUSCULAR HGB CONC 31.3 g/dL (33.0-36.5); MEAN CORPUSCULAR VOLUME 77.8 FL (78-98); MEAN PLATELET VOLUME 7.3 FL (7.4-10.4); MONOCYTES # (AUTO) 1.4 X10'3 (0-0.9); MONOCYTES % (AUTO) 8.6 % (2-12); NEUTROPHILS # (AUTO) 13.3 X10'3 (1.8-7.7); NEUTROPHILS % (AUTO) 82.6 % (42-75); PLATELET COUNT 326 X10'3 (140-440); RED BLOOD COUNT 4.23 X10'6 (4.70-6.10); RED CELL DISTRIBUTION WIDTH 17.5 % (11.5-14.5); WHITE BLOOD COUNT 16.1 X10'3 (4.5-11.0)
--- NOTE | 2020-06-29 07:09 | NUR ---
Patient in room MED 310. I have received report from CHRISTOFER Fallon and had the opportunity to ask questions and assume patient care.
[2020-06-29 07:23] LABS: ALBUMIN 3.2 G/DL (3.4-5.0); ANION GAP 11 (8-16); BLOOD UREA NITROGEN 27 MG/DL (7-18); BUN/CREATININE RATIO 14.6 (5.4-32.0); CALCIUM 8.6 MG/DL (8.5-10.1); CHLORIDE 104 MMOL/L (99-107); CREATININE 1.85 MG/DL (0.60-1.10); GLUCOSE 116 MG/DL (70-104); POTASSIUM 4.1 MMOL/L (3.5-5.1); SODIUM 140 MMOL/L (135-145); TOTAL CARBON DIOXIDE 25.1 MMOL/L (24-32); eGFR 35 ML/MIN
[2020-06-29] MEDS: clopidogrel 75mg tablet PO SCH (07:44)
[2020-06-29] MEDS: metoprolol succinate 25mg (24-HOUR) SR. Tablet PO SCH (07:44)
[2020-06-29] MEDS: vancomycin/NS 1 GM ADD-VANTAGE 250 ML IV SCH (08:26)
[2020-06-29] MEDS ORDERED: aspirin 81mg tab.chew PO SCH (08:30)
[2020-06-29 11:00] VITALS: BP_SYST 0; BP_SYST 124; BP_DIAS 73
--- NOTE | 2020-06-29 15:26 | NUR ---
made aware of pt. HR being in the 160's. no new orders given
--- NOTE | 2020-06-29 18:09 | NUR ---
pt. discharged from facility at 1530. pt. was wheeled down to lobby by staff and picked up by his son. pt. signed and understood all paperwork. pt. understands that he has follow-up appointments already scheduled and has been given the times and dates of them all. pt. IV was d/c intact. pt. had no new meds to call in. pt. left with all belongings.
--- NOTE | 2020-07-02 12:33 | NUR ---
CASE MANAGEMENT DISCHARGE FOLLOW UP: Spoke with pt and his son via telephone. Pt reports that he is "doing good so far." Pt denies skin rash, redness, swelling, pain, warmth at surgical site, odor/exudate from surgical site, fever, weight changes, chest pain, changes in sensation of RLE, SOB/difficulty breathing. Verbalizes understanding of s/sx requiring further evaluation/emergent assistance. Pt verbalizes understanding of current medications. Pt verbalizes compliance with MD discharge instructions. Pt verbalizes understanding of the importance in making/keeping follow-up appointments, has c/u scheduled with PCP and has appts with Dr Bell and TAVR clinic. Pt and his son state no further questions/concerns at this time.
== END 2020-06-29 15:30 | disposition home or self-care (01) | DRG 267 ==
LOC: PAS IN 05:32 → EDSTATUS 07:30 → MED 3N 09:30
PROVIDERS: ADMIT Internal Medicine Cardiovascular Disease; ATTEND Internal Medicine Cardiovascular Disease
PROC: B24BZZ4 Ultrasonography of Heart with Aorta, Transesophageal (ICD-10-PCS; 2020-06-28)
PROC: B41D1ZZ Fluoroscopy of Aorta and Bilateral Lower Extremity Arteries using Low Osmolar Contrast (ICD-10-PCS; 2020-06-28)
PROC: 02RF38Z Replacement of Aortic Valve with Zooplastic Tissue, Percutaneous Approach (ICD-10-PCS; principal; 2020-06-28 07:18)
DX: I35.0 Nonrheumatic aortic (valve) stenosis (principal); Z00.6 Encounter for examination for normal comparison and control in clinical research program; I48.21 Permanent atrial fibrillation; E78.5 Hyperlipidemia, unspecified; I10 Essential (primary) hypertension; I25.10 Atherosclerotic heart disease of native coronary artery without angina pectoris; R55 Syncope and collapse; N40.0 Benign prostatic hyperplasia without lower urinary tract symptoms; G47.9 Sleep disorder, unspecified; Z79.01 Long term (current) use of anticoagulants; I25.2 Old myocardial infarction; Z86.73 Personal history of transient ischemic attack (TIA), and cerebral infarction without residual deficits; Z98.61 Coronary angioplasty status
CPT/HCPCS: 33361; 36415; 80048; 83735; 84132; 85025; 85347; 93005; 93308; 93312; 93325; A4618; A6258; A6449; C1756; C1760; C1769; C1894; G0378; J0690; J1100; J1644; J2250; J2370; J2704; J2710; J2720; J3010; J3370; J3490; J7030; J7040; J7050; J7120; Q9967

== ENCOUNTER 2020-07-26 15:16 | Outpatient (CLI) | payer MEDICARE, BC ==
[~2020-07-26] VITALS: Ht 167.6 cm; Wt 77.6 kg
[~2020-07-26 15:16] MED LIST changes: +FURO-150 PO; +METO-395 PO; +POTA20TA19 PO; -aspirin 325mg tablet PO ONE; -ceFAZolin 2gm in dextrose, iso 50 ML IV ONE; -famotidine 20mg tablet PO ONE; -nitroPRUSSIDE in NS 100 ML IV SCH; -ondansetron/PF 4mg/2ml inj IV PRN; -phenylephrine inj 50 MG in normal saline 250ml IV soln 250 ML IV SCH; -ringers solution, lacted 1,000 ML IV SCH; -vancomycin 1,500 MG in NS 300ml IV soln IV ONE
[2020-07-26 17:42] VITALS: BP 136/82
--- NOTE | 2020-07-26 17:47 | NUR ---
Patient and his son Chris were seen today for TAVR follow-up with Dr. Pryor and Dr. Hickey. [facility] test completed. Vital signs measured. Echo and EKG reviewed with patient along with current condition of patients symptoms.
== END 2020-07-26 23:59 | disposition home or self-care (01) ==
LOC: TAVR 15:16
PROVIDERS: ATTEND Internal Medicine Cardiovascular Disease
DX: Z48.812 Encounter for surgical aftercare following surgery on the circulatory system (principal); Z95.5 Presence of coronary angioplasty implant and graft

== ENCOUNTER 2021-07-11 11:56 | Outpatient (CLI) | payer MEDICARE, BC ==
[~2021-07-11] VITALS: Ht 170.2 cm; Wt 71.7 kg
[~2021-07-11 11:56] MED LIST changes: +POTA-207 PO; -POTA20TA19 PO
[2021-07-11 12:52] VITALS: BP 166/78
--- NOTE | 2021-07-11 13:42 | NUR ---
Patient and his son were seen today for TAVR follow-up with Dr. Hickey. [facility]12 completed. Walk test completed. Vital signs measured. Echo and EKG performed and reviewed with patient along with current condition of patients symptoms.
== END 2021-07-11 23:59 | disposition home or self-care (01) ==
LOC: CARD DIAG 11:56
PROVIDERS: ATTEND Internal Medicine Cardiovascular Disease
DX: I08.1 Rheumatic disorders of both mitral and tricuspid valves (principal); I44.7 Left bundle-branch block, unspecified; I48.91 Unspecified atrial fibrillation; Z95.2 Presence of prosthetic heart valve; Z48.812 Encounter for surgical aftercare following surgery on the circulatory system
CPT/HCPCS: 93005; 93306

== ENCOUNTER 2021-08-19 07:18 | Day surgery (SDC) | payer MEDICARE, BC ==
[2021-08-19] VITALS (20 sets, daily range): BP systolic 115–174; BP diastolic 72–96
[~2021-08-19] VITALS: Ht 170.2 cm; Wt 73.7 kg
[2021-08-19] MEDS ORDERED: ceFAZolin inj. 2,000 MG in normal saline soln 50 ML IV ONE (08:05)
[2021-08-19] MEDS ORDERED: normal saline 1000ml 1,000 ML IV SCH (08:05)
[2021-08-19] MEDS ORDERED: midazolam 1 mg/ML 2ml injection ONE ×2 (08:08→09:33)
[2021-08-19] MEDS ORDERED: fentaNYL/PF 50MCG/1 ML 2ML syringe ONE (08:08)
[2021-08-19] MEDS ORDERED: iohexol 350 MG/ML 50ML vial IV ONE ×2 (08:09→09:26)
[2021-08-19] MEDS ORDERED: LIDOcaine 1% (10mg/ml)w/preservative inj. 20ml MDV ONE (08:09)
[2021-08-19] MEDS ORDERED: ceFAZolin 2gm in dextrose, iso 50 ML IV ONE (08:22)
[2021-08-19] MEDS ORDERED: DILT-35 PO (08:25)
[2021-08-19] MEDS ORDERED: DIGO125T PO (08:25)
[2021-08-19 08:32] LABS: BASOPHILS # (AUTO) 0.1 X10'3 (0-0.2); BASOPHILS % (AUTO) 0.9 % (0-1); EOSINOPHILS # (AUTO) 0.4 X10'3 (0-0.9); EOSINOPHILS % (AUTO) 4.5 % (0-6); HEMATOCRIT 37.5 % (42.0-52.0); HEMOGLOBIN 12.3 g/dl (14.0-17.9); LYMPHOCYTES # (AUTO) 1.8 X10'3 (1.1-4.8); LYMPHOCYTES % (AUTO) 19.5 % (21-51); MEAN CORPUSCULAR HEMOGLOBIN 26.4 PG (27.0-31.0); MEAN CORPUSCULAR HGB CONC 32.8 g/dL (33.0-36.5); MEAN CORPUSCULAR VOLUME 80.5 FL (78-98); MEAN PLATELET VOLUME 7.9 FL (7.4-10.4); MONOCYTES # (AUTO) 0.8 X10'3 (0-0.9); MONOCYTES % (AUTO) 8.4 % (2-12); NEUTROPHILS % (AUTO) 66.7 % (42-75); PLATELET COUNT 234 X10'3 (140-440); RED BLOOD COUNT 4.66 X10'6 (4.70-6.10); RED CELL DISTRIBUTION WIDTH 17.7 % (11.5-14.5)
[2021-08-19 08:35] LABS: APTT 33 SECONDS (22-32)
[2021-08-19 08:40] LABS: ALBUMIN 3.6 G/DL (3.4-5.0); ANION GAP 10 (8-16); BLOOD UREA NITROGEN 13 MG/DL (7-18); BUN/CREATININE RATIO 10.7 (5.4-32.0); CALCIUM 8.9 MG/DL (8.5-10.1); CHLORIDE 105 MMOL/L (99-107); CREATININE 1.21 MG/DL (0.60-1.10); GLUCOSE 134 MG/DL (70-104); MAGNESIUM 1.7 MG/DL (1.5-2.4); POTASSIUM 3.4 MMOL/L (3.5-5.1); SODIUM 141 MMOL/L (135-145); TOTAL CARBON DIOXIDE 25.9 MMOL/L (24-32); eGFR 57 ML/MIN
[2021-08-19] MEDS ORDERED: heparin 1,000 UNITS/NS 500ml 500 ML ONE ×3 (08:48→10:17)
[2021-08-19] MEDS ORDERED: heparin 1,000unit/ml 10ml vial 10 ML ONE (09:28)
[2021-08-19] MEDS ORDERED: diphenhydrAMINE 50 mg/ml inj ONE (09:37)
--- NOTE | 2021-08-19 11:05 | NUR ---
Pt returned from brush clearing laborer, Pressure dressing to Right groin site CD&I. Pedal pulses +. Warm blankets given. Pt verbalizes understanding need to keep right leg straight. VSS, Denies pain.
[2021-08-19] MEDS ORDERED: vancomycin/NS 1 GM ADD-VANTAGE 250 ML X 1 DOSE IV ONE (13:50)
--- NOTE | 2021-08-19 15:45 | NUR ---
HOB up 30 degreed, Right groin site stable no signs of bleeding, bruising or hematoma. Pt eating a sandwich without difficulty. Denies pain, VSS.
[2021-08-19] MEDS ORDERED: sod chloride 0.9% 10ml flush syringe IV SCH (16:00)
--- NOTE | 2021-08-19 16:35 | NUR ---
Son called to check up on pt, gave update. Transferred call into pt room, pt spoke with son.
--- NOTE | 2021-08-19 16:59 | NUR ---
Pt sitting up in bed approx 60 degrees, no signs of bleeding, bruising or hematoma to right groin site. Pressure dressing still intact without drainage noted.
--- NOTE | 2021-08-19 17:45 | NUR ---
Pt stood at bedside, slightly shaky. Pt used cane and RN contact guard assist to rest room. Right groin site stable, no bleeding, bruising or hematoma noted. Pt amb back to bed, stood at bedside and walked in place. After [address] gait got more steady. Instructed pt to use walker when he gets up at home. Returned to bed to await son for DC instructions.
--- NOTE | 2021-08-19 18:10 | NUR ---
Stefano Perez at bedside. Written and verbal DC instructions given to pt and Chris, both verbalize understanding. Enc pt to use walker for tonight and tomorrow. Pacemaker accessories given to son Chris and instructed that they would be given instructions on use at follow up apt with Dr. Acevedo. Instructed what to do if bleeding were to occur at Right groin site. Showed Right groin site to pt and son. Instructed to keep pressure dressing on until tomorrow AM. Instructed for pt not to take eliquis until tomorrow evening per Dr. Acevedo written instructions.
--- NOTE | 2021-08-19 18:25 | NUR ---
PIV DC cath intact. VSS. Right groin site stable no bleeding, bruising or hematoma noted. RN assisted pt to get dressed, amb to rest room using cane and stand by assist. Pt void in toilet clear yellow urine.
--- NOTE | 2021-08-19 18:45 | NUR ---
DC pt to home with Chris. Transferred to private car via WC, pt able to transfer self to car with son assist.
== END 2021-08-19 18:45 | disposition home or self-care (01) ==
LOC: SSTAY O 07:18
PROVIDERS: ATTEND Internal Medicine Cardiovascular Disease
DX: I49.5 Sick sinus syndrome (principal); Z00.6 Encounter for examination for normal comparison and control in clinical research program; I48.20 Chronic atrial fibrillation, unspecified; I44.7 Left bundle-branch block, unspecified; I25.10 Atherosclerotic heart disease of native coronary artery without angina pectoris; E78.5 Hyperlipidemia, unspecified; I10 Essential (primary) hypertension; I08.3 Combined rheumatic disorders of mitral, aortic and tricuspid valves; N40.0 Benign prostatic hyperplasia without lower urinary tract symptoms; Z95.5 Presence of coronary angioplasty implant and graft; Z86.73 Personal history of transient ischemic attack (TIA), and cerebral infarction without residual deficits; Z98.890 Other specified postprocedural states; Z88.5 Allergy status to narcotic agent; Z82.49 Family history of ischemic heart disease and other diseases of the circulatory system
CPT/HCPCS: 33274; 36415; 80048; 83735; 85025; 85610; 85730; 93005; 99152; 99153; C1760; C1769; C1786; C1894; J0690; J1200; J1644; J2250; J3010; J3370; J3490; J7030; Q9967; 76937; A4620; A6449